=== PATIENT | female | born 1950 ===

== ENCOUNTER 2016-07-25 09:47 | Day surgery (SDC) | payer BC ==
--- NOTE | ~2016-07-25 | OP ---
Record Of Operation [facility] [address] [place]. [address] NAME: PABLO SHIRLEY : 52 STATUS : REG [facility] PAT#: [id number] AGE: 66 ADM/REG DATE : 07/25/16 MR#: [id number] REPORT SERV DATE: 07/25/16 DICTATED BY: JULIO COHEN DATE: 07/25/16 REPORT STATUS : Draft TRANSCRIBED BY: ESTEBAN DATE: 07/25/16 DATE OF PROCEDURE: PREPROCEDURE DIAGNOSIS: History of polyps. POSTPROCEDURE DIAGNOSIS: History of polyps. PROCEDURE: Colonoscopy with hot biopsy polypectomy x3 and the polyps located at 80 cm in the ascending colon, 65 cm transverse colon, and 5 cm in the rectum; all removed with hot biopsy forceps. DESCRIPTION OF PROCEDURE: The patient was taken to the endoscopy suite, positioned in the left lateral decubitus position. Informed consent was obtained, followed by IV sedation delivered by [employer]. Digital rectal exam was performed. Slightly decreased sphincter tone. The scope was navigated without difficulty to the ileocecal valve where the appendiceal orifice was identified. The scope was withdrawn over a 12-minute period of time. There was a sessile 1 cm polyp located in the mid ascending colon at 80 cm. This was removed using several bites of the hot biopsy polypectomy technique. The scope was withdrawn into the transverse colon where at 65 cm, there was a smaller polyp measuring about 10 mm which was also removed with hot biopsy polypectomy technique. There were a few scattered diverticula in the sigmoid colon and then in the rectum, diminutive polyp measuring 2 mm which was also sessile, removed with hot biopsy forceps. An attempt was made to retroflex; however, the patient had decreased sphincter tone and for this reason, the scope was simply withdrawn slowly through the anal canal where grade 1 internal hemorrhoids were noted. She tolerated the procedure well. LIZA/ESTEBAN Julio Cohen M.D. / [id number] CC: Mohit Toribio M.D.
[~2016-07-25 09:47] MED LIST: FORTAMET500 MG PO; KLOR-CON M2020 MEQ PO; OCUVITE PO; PRILOSEC OTC20 MG PO; PRIN20 PO; VICTOZA18 MG/3 ML SC; VITAMIN D31000 UNIT PO
== END 2016-07-25 23:59 | disposition home or self-care (01) ==
LOC: DMU 09:47
PROVIDERS: Surgery
PROC: 0DBP8ZX Excision of Rectum, Via Natural or Artificial Opening Endoscopic, Diagnostic (ICD-10-PCS; 2016-07-25)
PROC: 0DBL8ZX Excision of Transverse Colon, Via Natural or Artificial Opening Endoscopic, Diagnostic (ICD-10-PCS; 2016-07-25)
PROC: 0DBK8ZX Excision of Ascending Colon, Via Natural or Artificial Opening Endoscopic, Diagnostic (ICD-10-PCS; principal; 2016-07-25 11:30)
DX: D12.2 Benign neoplasm of ascending colon (principal); D12.3 Benign neoplasm of transverse colon; K62.1 Rectal polyp; K57.30 Diverticulosis of large intestine without perforation or abscess without bleeding; I10 Essential (primary) hypertension; K21.9 Gastro-esophageal reflux disease without esophagitis; E11.9 Type 2 diabetes mellitus without complications; E04.1 Nontoxic single thyroid nodule; Z86.010 Personal history of colon polyps
CPT/HCPCS: 82962; 88305